=== PATIENT | female | born 1990 | race African-American/Black ===

== ENCOUNTER 2021-10-26 23:08 | Emergency (ER) | payer SELFPAY ==
--- NOTE | ~2021-10-26 | XR_ITS ---
EXAMINATION: XR ankle LT min 3V DATE: 10/26/2021 23:46 INDICATION: Left ankle pain. Fall. TECHNIQUE: 4 views of left ankle were obtained. COMPARISON: None. FINDINGS: There is a comminuted fracture of distal tibial metadiaphysis. The main distal fracture fra gment demonstrates 6 degrees lateral angulation, 7 degrees posterior angulation, and 4 mm lateral dis placement. There is a comminuted fracture of distal fibular diaphysis. The main distal fracture fragm ent demonstrates 8 degrees lateral angulation, one cortical width lateral displacement, one cortical width posterior displacement, and 3 degrees posterior angulation. Joint spaces are normal. There are enthesophytes at the posterior and plantar aspects of calcaneal tuberosity. IMPRESSION: 1. Comminuted fracture of distal tibial metadiaphysis. 2. Comminuted fracture of distal fibular diaphysis. Reviewed, dictated and finalized at location E. ENT DRIVING INSTRUCTOR
[2021-10-26 23:15] VITALS: BP 157/102; PULSE 87; RESP 18; TEMP 36.7; O2SAT 100
--- NOTE | 2021-10-26 23:29 | ED.LOWEXIN ---
HPI - Extremity Injury (Lower) General Chief Complaint: Extremity Injury, Lower Stated Complaint: left ankle injury Time Seen by Provider: 10/26/21 23:15 Source: patient Mode of arrival: wheelchair Limitations: no limitations History of Present Illness HPI Narrative: Patient is a 29-year-old female complaining of left ankle pain, 8 out of 10, dull, worse with palpation and movement that started around 7 PM tonight after she slipped and fell on ice, twisting her left ankle. Patient denies any other pain or injury. Patient denies any head, neck, back or any other extremity pain/injury Related Data Allergies Allergy/AdvReac Type Severity Reaction Status Date / Time No Known Allergies Allergy Verified 10/26/21 23:18 Review of Systems Review of Systems: See HPI, all others negative All systems reviewed & are unremarkable except as noted in HPI and below PMFSH Comments Past medical history: None Family history: None Social history: Non-smoker no EtOH or drug use Exam Const: General: cooperative, healthy appearing, comfortable, no acute distress, well developed, alert and awake; No confusion Orientation/consciousness: oriented to person, oriented to place, oriented to time, patient oriented x3 and No confusion Limitations: no limitations HENMT: Head: normal to inspection, normocephalic and atraumatic Ears: hearing grossly normal bilaterally, TM normal on the right and TM normal on the left General nose exam: Normal external nose present, Normal nares present and No nasal discharge present Face and sinus: normal facial exam Mouth: Yes Normal oral and palatal mucosa present, Yes lip normal, Yes tongue normal and Yes oropharynx normal Throat: posterior oropharynx normal, tonsils normal and uvula midline Eyes: General: appearance normal, both eyes and all related structures Pupils: Equal, round and reactive pupils present EOM: EOMs intact bilaterally Neck: Neck: normal visual inspection and full ROM Chest: Chest palpation & inspection: normal inspection of the chest Resp: Effort & Inspection: normal respiratory effort, able to speak in complete sentences, no respiratory distress and not tachypneic Auscultation: clear to auscultation bilaterally, no crackles, no rales, no rhonchi and no wheezes Cardio: Rate: regular rate Rhythm: regular rhythm GI: Inspection: normal to inspection GI Palp: No abdominal tenderness, Yes Soft to palpation, No Tenderness to palpation present (GI), No Guarding due to palpation present (GI), No Rigid due to palpation and No Rebound tenderness present Auscultation: normal bowel sounds Skin: General skin exam: normal color, no rashes or lesions noted, elasticity normal and turgor normal Neuro: General: oriented to person, oriented to place, oriented to time, patient oriented x3, tone normal, moves all extremities, Normal light touch and pain sensation, no focal motor deficits and No confusion Cranial nerves: Yes Equal, round and reactive pupils present Speech: No Abnormal speech present Sensory Exam: No Sensory deficit (Neuro) Extrem: Other: Left ankle deformity, swelling, ecchymosis,, pain on palpation of the lateral medial malleolus, decreased range of motion due to pain, neurovascular is intact Psych: Appearance: grossly normal and well kempt Mental Status: mental status grossly normal Speech and movement: Normal speech and movement present Affect: normal affect Attitude: cooperative Thought process: Normal thought process present Thought content: Yes Normal thought content present Insight: Good insight present (Psych) Judgement: Good judgement present (Psych) Course Vital Signs Vital signs: Vital Signs Temperature 36.7 C 10/26/21 23:15 Pulse Rate 87 10/26/21 23:15 Respiratory Rate 18 10/26/21 23:15 Blood Pressure 157/102 H 10/26/21 23:15 Pulse Oximetry 100 10/26/21 23:15 Temperature 36.7 C 10/26/21 23:15 Pulse Rate 83 10/26/21 23:55 Respiratory Rate 24 H
--- NOTE | 2021-10-26 23:29 | PC.NURSE ---
XY to room at this time.
[2021-10-26] MEDS: HYDROcodone/acetaminophen (*CRX) 5-325 MG TABLET 2 TAB PO (23:43)
[2021-10-26 23:55] VITALS: BP 142/98; PULSE 83; RESP 24; O2SAT 98
[2021-10-26] MEDS: TETANUS,DIPHTHERIA,AC PERTUSSIS ADULT (0.5 ML) BOOSTRIX IM (23:56)
[2021-10-26] MEDS: diazePAM INJ (*CRX) 10 MG/2 ML SYRINGE 5 MG IM (23:59)
[2021-10-27 00:31] VITALS: BP 161/92; PULSE 86; RESP 26; O2SAT 100
[2021-10-27] MEDS: HYDROcodone/acetaminophen (*CRX) 5-325 MG TABLET 1 TAB PO (01:40)
[2021-10-27] MEDS: KETOROLAC 30 MG/ML VIAL (*BKC) IM (01:41)
[2021-10-27 01:46] VITALS: BP 133/89; PULSE 91; RESP 18; O2SAT 100
--- NOTE | 2021-10-28 11:56 | PM.IMHP ---
H&P: HPI History of Present Illness Date/Time: 10/28/21 11:56 Chief Complaint: Left ankle injury Narrative: 31-year-old woman injured left leg on ice and snow October 26. Emergency room visit noted to have tibia and fibular fracture. Splinted and discharged home. Presents now for operative treatment. Review of Systems Constitutional: Constitutional: Denies fever(s) Eyes: Eyes: Denies blurry vision ENT: Reports Normal hearing present Cardiovascular: Cardiovascular: Denies chest pain and Denies dyspnea Respiratory: Respiratory: Denies dyspnea and Denies wheezing Gastrointestinal: Gastrointestinal: Denies abdominal pain Genitourinary: Genitourinary: Denies urinary urgency Musculoskeletal: Musculoskeletal: Reports as per HPI and Denies numbness Integumentary/Breasts: Skin/Breast: Denies changing lesions and Denies sores Neurologic: Reports Normal hearing present, Denies behavioral changes, Denies confusion, Denies numbness and Denies convulsions Psychiatric: Psychiatric: Denies behavioral changes, Denies confusion and Denies hallucinations Endocrine: Endocrine: Denies heat intolerance Hematologic/Lymphatic: Hematologic/Lymphatic: Denies easy bleeding Allergic/Immunologic: Allergic/Immunologic: Denies wheezing Meds Home Medications and Allergies Home Medications Medication Instructions Recorded Confirmed Type hydrocodone 5 mg-acetaminophen 325 1 tablet PO Q6H PRN #20 tablet 10/28/21 Rx mg tablet Allergies Allergy/AdvReac Type Severity Reaction Status Date / Time No Known Allergies Allergy Verified 10/26/21 23:18 Exam Const: General: cooperative, healthy appearing, comfortable, no acute distress, well developed, alert and awake; No confusion Orientation/consciousness: oriented to person, oriented to place, oriented to time, patient oriented x3 and No confusion Limitations: no limitations HENMT: Head: normal to inspection, normocephalic and atraumatic Ears: hearing grossly normal bilaterally, TM normal on the right and TM normal on the left General nose exam: Normal external nose present, Normal nares present and No nasal discharge present Face and sinus: normal facial exam Mouth: Yes Normal oral and palatal mucosa present, Yes lip normal, Yes tongue normal and Yes oropharynx normal Throat: posterior oropharynx normal, tonsils normal and uvula midline Eyes: General: appearance normal, both eyes and all related structures Pupils: Equal, round and reactive pupils present EOM: EOMs intact bilaterally Neck: Neck: normal visual inspection and full ROM Chest: Chest palpation & inspection: normal inspection of the chest Resp: Effort & Inspection: normal respiratory effort, able to speak in complete sentences, no respiratory distress and not tachypneic Auscultation: clear to auscultation bilaterally, no crackles, no rales, no rhonchi and no wheezes Cardio: Rate: regular rate Rhythm: regular rhythm GI: Inspection: normal to inspection GI Palp: No abdominal tenderness, Yes Soft to palpation, No Tenderness to palpation present (GI), No Guarding due to palpation present (GI), No Rigid due to palpation and No Rebound tenderness present Auscultation: normal bowel sounds Skin: General skin exam: normal color, no rashes or lesions noted, elasticity normal and turgor normal Neuro: General: oriented to person, oriented to place, oriented to time, patient oriented x3, tone normal, moves all extremities, Normal light touch and pain sensation, no focal motor deficits and No confusion Cranial nerves: Yes Equal, round and reactive pupils present Speech: No Abnormal speech present Sensory Exam: No Sensory deficit (Neuro) Extrem: Other: Left ankle deformity, swelling, ecchymosis,, pain on palpation of the lateral medial malleolus, decreased range of motion due to pain, neurovascular is intact Psych: Appearance: grossly normal and well kempt Mental Status: mental status grossly normal Speech and mov
== END 2021-10-27 01:46 | disposition home or self-care (01) ==
PROVIDERS: Emergency Provider Emergency Medicine
DX: S82.302A Unspecified fracture of lower end of left tibia, initial encounter for closed fracture (principal); S82.452A Displaced comminuted fracture of shaft of left fibula, initial encounter for closed fracture; W00.0XXA Fall on same level due to ice and snow, initial encounter; Z23 Encounter for immunization
CPT/HCPCS: 73610; 90471; 90715; 96372; 99284; A9270; J1885; J3360

== ENCOUNTER → 2021-10-29 00:13 | Outpatient (CLI) | payer SELFPAY ==
[2021-10-29 12:28] LABS: SARS-CoV-2 RNA PCR Negative
== END ==
PROVIDERS: Visit Provider Orthopaedic Surgery
DX: Z01.812 Encounter for preprocedural laboratory examination (principal); Z20.822 Contact with and (suspected) exposure to COVID-19
CPT/HCPCS: C9803; U0003; U0005

== ENCOUNTER 2021-10-31 00:44 | Day surgery (SDC) | payer SELFPAY ==
[2021-10-28 13:53] VITALS: BMI 32.5
--- NOTE | 2021-10-28 14:03 | PC.NURSE ---
Report to the Outpatient Waiting Room, entrance under the green pavilion located off [facility], at time 0900 on date 10/31/21. OR Time: 1100. - You will be asked a series of questions to screen for COVID 19 for your protection. - A mask is required within the hospital. - No visitors are allowed at this time. Preoperative COVID Testing Requirements: COVID TEST 2/ AT 0920 No COVID Test needed if: (proof is required; if not received patient will have Rapid Test prior to entry) - Patient has received COVID Vaccine at least 14 days prior to procedure date or - Patient has positive COVID test result within last 90 days of surgery date. COVID Test needed if above criteria is not met If not COVID vaccinated a COVID test must be conducted within 72 hours of surgery and patient is asked to isolate self from time of testing until procedure. You will go to the [facility] for your COVID testing. The [facility] site is located at the corner of [address] [facility]. You will only be called if COVID results are positive and your surgeon may reschedule your elective surgery date. Patients may have clear liquids (water, carbonated beverages, clear teas, apple juice) until 3 hours prior to surgery with a maximum of 20 ounces. - No food from midnight until time of surgery Take the following medications with a SIP of water the morning of surgery: PAIN PILL (IF NEEDED) Medications to discontinue per physician: N/A Date to take last dose: N/A Please no make-up, nail tongan, hairspray, perfume, deodorant, or body powder the day of surgery. No jewelry (including any body piercings) or valuables the day of surgery, leave them at home. Please take a shower or bath the night before, or the morning of, surgery with an antibacterial soap. Wear comfortable, loose fitting clothing. - Jewelry must be removed prior to entering the operating room. Rings and piercings that are not removed may be cut off. - The hospital will not accept responsibility for valuables. - Please leave all valuables, including medications, at home the day of surgery. If you are going home after surgery, a licensed entry driver operator must drive you home. - NO public transportation without another adult. - We recommend that an adult stay with you for 24 hours following discharge. - We also recommend that you do not drive, make important decision, drink alcoholic beverages, or take any drugs that were not prescribed by your health care provider for at least 24 hours after your discharge time. Follow any additional instructions given to you from your surgeon. Telephone instructions given to BECKIE MCGEE and asked if any additional questions and then verbalized understanding. Patient advised to call surgeon office or pre surgery nurse liaison [phone] if any additional questions.
[2021-10-31] VITALS (11 sets, daily range): BP systolic 134–171; BP diastolic 80–98; PULSE 79–102; RESP 12–22; TEMP 36.6–36.8; O2SAT 97–100
--- NOTE | ~2021-10-31 | XR_ITS ---
EXAMINATION: XR surgery orthopedic DATE: 10/31/2021 14:02 INDICATION: Distal left tibia/fibular fractures post intramedullary nail fixation. TECHNIQUE: 7 fluoroscopic images of the left tibia/fibula were obtained during procedure performed by Dr. Woo. Radiologist was not present for the imaging or procedure. The amount of fluoroscopy julisa e used during this procedure was 3.7 minutes. COMPARISON: Antegrade intramedullary geovany with a pair of proximal and pair of distal interlocking scre ws spanning the spiral fracture of the distal left tibia which is in near-anatomic alignment with one cortical with residual medial displacement. There is also been reduction internal fixation with a re trograde intramedullary geovany of the distal fibular fracture which is now also in near-anatomic alignme nt. Normal alignment and joint space at the visualized left ankle and hindfoot. FINDINGS: Near-anatomic alignment post internal fixation of an extra articular fractures at the dista l left tibia and fibula. See procedure note for further detail. IMPRESSION: 1. Reviewed, dictated and finalized at location A. CORE WELDER IMPRESSION: 1.
--- NOTE | 2021-10-31 07:07 | WPDHPUPDATE1 ---
History and Physical Update Update Date/Time: 10/31/21 07:07 History and Physical has been reviewed, including an updated exam of the patient. There are NO changes in the patient's condition. Risks, benefits, and alternatives have been discussed and questions answered. Patient agrees to proceed with procedure.
[2021-10-31] MEDS: LACTATED RINGERS 1,000 ML 30 ML IV CONT ×3 (09:50→14:14)
[2021-10-31] MEDS: ACETAMINOPHEN 500 MG TABLET 1000 MG PO (10:03)
[2021-10-31] MEDS: KETOROLAC 15 MG/ML VIAL (*BKC) IV PUSH (10:04)
[2021-10-31] MEDS: fentaNYL CITRATE INJ (*CRX) 100 MCG/2 ML VIAL 50 MCG IV PUSH (10:06)
--- NOTE | 2021-10-31 10:28 | P.PNAN_ITS ---
Anes - Initial Pre Proc Eval Procedure: Operation Date: 10/31/21 11:00 Proposed Procedures p Intramedullary Nail Left Tibia and Fibula - Luisito Woo MD Date/Time: 10/31/21 10:28 Surgeon: Luisito Woo MD Pre Op Diagnosis: left tibia fibula fx Patient Data Age: 31 Gender: F Height: 1.63 m Weight: 86.18 kg Allergies Allergy/AdvReac Type Severity Reaction Status Date / Time No Known Allergies Allergy Verified 10/31/21 10:25 Home Medications Medication Instructions Recorded Confirmed Type hydrocodone 5 mg-acetaminophen 325 1 tablet PO Q6H PRN #20 tablet 10/28/21 10/31/21 Rx mg tablet Patient hx anesthesia problems: none Family hx anesthesia problems: none Results Review: All pre-operative results and documents have been reviewed as part of the pre-operative evaluation. [facility] Past Medical History Medical History (Updated 10/31/21 @ 10:28 by Luis Bardales MD) Obesity Surgical History Surgical History (Updated 10/31/21 @ 10:30 by Luis Bardales MD) History of section Social History Social History Smoking status: Never smoker Alcohol intake: never Substance use: never Substance use type: does not use Living arrangements: with family Spiritual care concerns: No Anes - Eval Final PreProcedure Day of Procedure 10/31/21 10:28 Patient weight: obese Heart: regular rate and rhythm Lungs: clear to auscultation Airway: Mallampati scale class II Neurological: alert and oriented Last oral intake: >/= 8 hours ASA classification: III Emergent: no Anesthesia type and monitoring: general LMA and standard monitoring Results Review: All pre-operative results and documents have been reviewed as part of the pre-operative evaluation. Informed Consent: The patient's anesthetic plan and its attendant risks and benefits were discussed with the patient/family/POA. Questions were solicited and answers provided to the satisfaction of the patient/family/POA.
[2021-10-31] MEDS: ceFAZolin 2 GM/D5W 50 ML 2 GM/50 ML BAG IVPB (11:08)
[2021-10-31] MEDS: ONDANSETRON INJ 4 MG/2 ML VIAL IV PUSH (14:13)
[2021-10-31] MEDS: SCOPOLAMINE 1.5 MG PATCH TRANSDERM (14:36)
[2021-10-31] MEDS: diphenhydrAMINE HCl INJ 50 MG/ML VIAL 25 MG IV PUSH (14:37)
[2021-10-31] MEDS: fentaNYL CITRATE INJ (*CRX) 100 MCG/2 ML VIAL 25 MCG IV PUSH ×4 (14:44→15:40)
[2021-10-31] MEDS: oxyCODONE HCL (*CRX) 5 MG TAB IR PO (15:51)
--- NOTE | 2021-10-31 16:15 | W.PM.PROC2 ---
Procedure Note - Detailed Date of Procedure 10/31/21 Pre-op Diagnosis left tibia fibula fx Post-op Diagnosis same Procedure Performed Intramedullary nail fixation left tibia fracture, intramedullary nail fixation left fibula fracture Surgeon Luisito Woo MD Supervisor Color Making 1st congressional assistant Anesthesia general Indications 31-year-old woman who fractured left tibia and fibula after fall on ice. Presents for operative treatment. Description of Procedure Patient identified in the preoperative holding. Informed consent given. Operative extremity marked. Patient received intravenous antibiotics. Patient brought to the operating room where underwent general anesthetic by anesthesia team. Positioned supine on operating room table. Time-out performed confirming the patient, site of the surgery and the plan. Left leg prepped and draped usual sterile surgical fashion using a ChloraPrep skin solution. Local anesthetic used at the knee and ankle with 0.5% Marcaine plain. Direct anterior midline incision made from inferior to the patella to the tibial tubercle the 15 blade knife. Hemostasis controlled electrocautery. Tibial tendon did identified and retracted medially. Lateral capsulotomy performed. Starting point at the anterior proximal tibia marked with a guidewire and checked with image intensification. Entry reaming done of the proximal tibia with the proximal Reamer. Ball-tipped guidewire then placed into the intramedullary canal. Fracture reduced and verified with image intensification and the guidewire danced. Reaming of the tibia performed sequentially from size 8.5 up to 12.5 mm diameter. Length of the nail measured off of the guide wire and size 11 mm by 315 mm Arthrex nail assembled on the back table. This was inserted over the guide geovany and the guide geovany was removed. Image intensification confirmed reduction of the fracture. Proximal locking done with the out nursing faculty device. Two screws placed obliquely in verified by image intensification. Distal locking done freehand with a medial to lateral screw and an anterior to posterior screw with good position. Fibula then addressed. Longitudinal incision made distal to the fibula with a 15 blade knife. Blunt dissection carried down to the tip of the distal fibula. Starting point Verified and a guide pin placed across fracture into the intramedullary canal. distal and proximal reaming performed. 180 mm x 3 mm fibular nail then inserted after removal of the guide pin. Proximal locking deployed. Distal locking done with the out nursing faculty. Final positioning verified with image intensification. All wounds thoroughly irrigated. Knee arthrotomy repaired with 0 Vicryl interrupted suture. Subcutaneous tissue repaired with 2 Vicryl interrupted suture and 3 Monocryl interrupted suture. All skin repaired with 3 O nylon suture. Sterile dressing applied. Bulky ankle splint applied. The patient was then woken from anesthesia, extubated and taken to the recovery room in stable condition. All sponge, needle, instrument counts were correct at the end of the case. Implants Arthrex tibial intramedullary nail with proximal and distal locking screws. Fibular intramedullary nail with distal locking screws. Estimated Blood Loss -400.0 Tourniquet Time 0 Drains No Packing No Pathology none sent Complications None Condition stable Disposition PACU
== END 2021-10-31 16:15 | disposition home or self-care (01) ==
PROVIDERS: Visit Provider Orthopaedic Surgery
PROC: (CPT 27759; principal; 2021-10-31 11:00)
DX: S82.302A Unspecified fracture of lower end of left tibia, initial encounter for closed fracture (principal); S82.832A Other fracture of upper and lower end of left fibula, initial encounter for closed fracture; W19.XXXA Unspecified fall, initial encounter; E66.9 Obesity, unspecified; Z68.37 Body mass index [BMI] 37.0-37.9, adult
CPT/HCPCS: 27759; 27784; A9270; J0690; J1100; J1200; J1885; J2250; J2405; J2704; J3010; J7120